=== PATIENT | female | born 1960 | race Caucasian/White ===

== ENCOUNTER → 2018-07-02 | Outpatient (CLI) | payer OTHER ==
[~2018-07-02] MED LIST: RAME8TAB43 PO; TRAZ50TA34 PO
--- NOTE | 2018-07-02 15:37 | RADIOLOGY IMAGING REPORT ---
FACILITY: [facility] [place] PATIENT NAME: Rosalind Renae : 1960 MR: [id number] V: [id number] EXAM DATE: ORDERING PHYSICIAN: DEWEY RAMIREZ TECHNOLOGIST: Location: [facility] Patient: Rosalind Renae : 1960 Visit/Account:[id number] Date of Sevice: 07/02/2018 KUB SINGLE VIEW ABDOMEN Given history: COMPARISON: None Bowel gas: Bowel gas pattern is within normal limits with scattered air through large and small brijesh l. No abnormal calcifications seen. Fecal material seen in the ascending colon but there is no evidence of colonic dilatation. This is within normal limits. Additional findings: There spondylitic endplate changes through the lumbar spine. I suspect cirrho sis noted in the right hip joint compatible with arthritis. IMPRESSION: No acute pathology identified. Report Dictated By: Paramjit Dougherty MD at 07/02/2018 3:32 PM Report E-Signed By: Paramjit Dougherty MD at 07/02/2018 3:33 PM WSN:CORY
== END ==
LOC: RAD 12:18
PROVIDERS: ATTEND Nurse Practitioner Family
DX: R10.9 Unspecified abdominal pain (principal)
CPT/HCPCS: 74018